=== PATIENT | male | born 1995 | race African-American/Black ===

== ENCOUNTER 2017-05-09 05:01 | Day surgery (SDC) | payer OTHER ==
[2017-05-09 07:30] VITALS: BP 101/64; BMI 24.4
[2017-05-09] MEDS ORDERED: VENTOLIN HFA18 GM INH (07:54)
--- NOTE | 2017-05-09 11:53 | NUR ---
OPA IN AIRWAY ON ADMIT
--- NOTE | 2017-05-09 11:54 | NUR ---
DEMEROL 25MG IV GIVEN FOR SHIVERING @1146 COULD NOT DOCUMENT NORMALLY
--- NOTE | 2017-05-09 12:52 | NUR ---
IV DC WITH CATHER TIP INTACT
[2017-05-09] MEDS ORDERED: PERCOCET 5-3251 TAB PO (13:43)
[2017-05-09] MEDS ORDERED: DURICEF500 MG PO (13:43)
--- NOTE | 2017-05-09 13:52 | OP ---
PATIENT NAME: JENNIFER REINOSO MEDICAL RECORD: [id number] LOCATION:[facility] ADMISSION DATE: SURGEON: FADUMO MORRIS DO DATE OF OPERATION: 05/09/2017 PROCEDURE PERFORMED: Right fifth metacarpal osteotomy. PREOPERATIVE DIAGNOSIS: Right fifth metacarpal shaft malunion. POSTOPERATIVE DIAGNOSIS: Right fifth metacarpal shaft malunion. INDICATIONS: Mr. Corona is a right hand dominant 21-year-old inmate who had broke his fifth metacarpal sometime ago. He had increased angulation and an extensor lag of the fourth and fifth digits. He was seen in clinic and x-rays were taken and his angulation of his fifth metacarpal increased quite a bit, was about 40 and then increased to greater than 70. Once this was seen and extensor lag was noted, he was sent out for surgery. SURGEON: Fadumo Morris DO Tourniquet was up for 35 minutes. BLOOD LOSS: Minimal. COMPLICATIONS: None. DESCRIPTION OF PROCEDURE: Mr. Corona was given a block in the preoperative area, then taken to the operative suite, laid in supine position. The right arm was prepped and draped in sterile fashion. Time-out was performed. The patient was given 2 grams Ancef preoperatively. After a timeout was performed and the arm was prepped and draped, everyone was in agreement of correct side, site and surgery, incision was made on the ulnar border of the fifth metacarpal and careful dissection was made down to the fifth metacarpal itself. The extensor tendon was taken radially. Once this was done, the fracture site was encountered and cleaned out with a freer and some curettes and then the plate was used first to place distally with 2 screws distally and then the reduction was made with the plate seen to be in good position. This was confirmed via x-ray. Then, 2 compression screws were placed proximally and then another screw was placed proximally. These were all compression screws. Once this was done, x-rays confirmed a good position. The tourniquet was let down and the wound was irrigated. The extra bone that had been taken out from the fracture site was replaced into the fracture site and the skin was closed with 4-0 Monocryl inverted interrupted fashion and 5-0 Monocryl was run in under the skin. Steri-Strips were then placed over the wound. The patient was placed in an ulnar gutter splint leaving the fingers exposed. The patient was awakened and taken to recovery room in stable condition. TRANSINT:[id number] Voice Confirmation ID: [id number] DOCUMENT ID: [id number] OPERATIVE REPORT [id number] JENNIFER REINOSO,FADUMO [place] DO at 1352 CC: [id number] DICTATION DATE: 05/09/17 111 MANAGER MEDIA: 05/09/17 [id number] [place] [address]
== END 2017-05-09 13:15 | disposition home or self-care (01) ==
LOC: D.OPS 05:01
DX: S62.326P Displaced fracture of shaft of fifth metacarpal bone, right hand, subsequent encounter for fracture with malunion (principal); X58.XXXD Exposure to other specified factors, subsequent encounter; Z01.812 Encounter for preprocedural laboratory examination